=== PATIENT | female | born 1975 | race Caucasian/White ===

== ENCOUNTER 2018-04-23 21:42 | Emergency (ER) | payer OTHER ==
[~2018-04-23] VITALS: Ht 165.1 cm; Wt 59.1 kg
[~2018-04-23 21:42] MED LIST: NOCURR
[2018-04-23 21:47] VITALS: BP 125/75
== END 2018-04-23 22:40 | disposition left against medical advice (07) ==
LOC: EMS 21:42
DX: Z53.21 Procedure and treatment not carried out due to patient leaving prior to being seen by health care provider (principal)